=== PATIENT | male | born 1985 | race Caucasian/White ===

== ENCOUNTER → 2022-08-07 | Outpatient (CLI) | payer BC ==
[2022-08-07 14:39] VITALS: BP 143/98; PULSE 90; TEMP 97.7; BMI 42.5
--- NOTE | 2022-08-07 16:37 | P.HPBAR ---
Bariatric H&P - History & Physicial H&P Date: 08/07/22 History & Physicial: Visit/CC: initial clinic visit Patient initial contact: Initial weight: Initial weight in pounds: Height: 5 ft 8.5 in Initial BMI: Last weight: Current weight: 128.82 kg Current weight in pounds: 284.00 Current BMI: 42.5 [place] body weight (based on NIH guidelines): 71.214 kg Excess body weight loss: The patient is a 36 year-old M who presents for Bariatric Assessment. Patient is known to our service from previous evaluation. I know the patient's family from prior surgeries including sleeve gastrectomy. Patient here today to discuss weight loss surgeries. He is interested in sleeve gastrectomy at this time. Patient suffers from hypertension, joint pain, GERD, chronic back pain, fatigue. No history diabetes, no DVT or dysphagia. BMI 42.6. Patient's previous surgeries include a open appendectomy, tonsils, adenoids, left hand. Patient had a flareup of diverticulitis in May. In a similar episode 1-2 years ago. He has had a colonoscopy within the last year. Patient takes occasional Prilosec for his heartburn if he knows he is choosing high acid foods. Review of Systems The patient denies any acute changes in vision or hearing, no dysphagia or od ynophagia, no chest pain or shortness of breath, no dysuria or hematuria, no headache, no runny nose, no rectal bleeding or melena, no unexplained weight loss Past Medical History History of Any Multi-Drug Resistant Organisms: None Reported Smoking Status: Never smoker Surgical - Exam Vital Signs Temp Pulse BP 97.7 F 90 143/98 08/07/22 14:34 08/07/22 14:34 08/07/22 14:34 Physical exam: General: Well-developed, well-nourished HEENT: Normocephalic, sclerae nonicteric Abdomen: Nontender, nondistended Extremities: No edema Neuro: Alert and oriented Bariatric Assessment & Plan (1) Morbid obesity with BMI of 40.0-44.9, adult Narrative/Plan: 36-year-old male with morbid obesity. Patient is interested in sleeve gastrectomy which I believe is a good option for the patient. We discussed the risks and benefits and anticipated weight loss of sleeve gastrectomy and gastric bypass in detail. Patient states he is considering a repeat colonoscopy after discussing his flareup of diverticulitis with a different general surgeon. Patient will require preoperative EGD. Will obtain additional documentation from his primary care team. Status: Acute Bariatric Checklist Checklist: Plan: Checklist: EGD: 1. Hiatal hernia: 2. H. Pylori: HgbA1c: Vitamin D: Smoking: Primary care physician referral: Psychiatry clearance: Cardiology clearance: Sleep study: Diet journal: VTE risk score: VTE risk level: Rehab needs at discharge:
[2022-08-07 20:06] LABS: HCT 45.5 % (39.6-50.0); HGB 15.8 g/dL (13.0-17.0); MCHC 34.7 g/dL (32.0-37.0); MCV 92.3 fL (80.0-97.0); Mean Platelet Volume 10.4 fL (9.5-12.2); NRBC Per 100 WBC 0 /100 WBCS (0.0-0.0); Platelet Count 329 X 10*3/uL (140-440); RBC 4.93 X 10*6/uL (4.40-5.60); RDW 12.3 % (11.5-14.5); WBC 8.78 X 10*3/uL (4.50-10.00)
[2022-08-07 20:24] LABS: African American GFR (CKD) 115.2 (60.0-200.0); Albumin 4.7 g/dL (3.8-4.9); Albumin/Globulin Ratio 1.63 (1.60-3.17); Anion Gap 7.5 mmol/L (10.00-18.00); BUN/Creat Ratio 14.88 Ratio (12.00-20.00); Blood Urea Nitrogen 14.6 mg/dL (9.0-27.0); Carbon Dioxide 26.7 mmol/L (20.0-27.5); Globulin 2.9 g/dL (1.6-3.3); Non-African American GFR(CKD) 99.4 (60.0-200.0); Potassium 4.8 mmol/L (3.5-5.5); Total Bilirubin 0.4 mg/dL (0.30-1.20); Total Protein 7.5 g/dL (6.2-8.2)
[2022-08-09 07:42] LABS: Anabasine Urine <2.0 ng/mL (<2.0)
== END ==
LOC: BARWHC3 13:55
PROVIDERS: ATTEND Surgery
DX: E66.01 Morbid (severe) obesity due to excess calories (principal); Z98.84 Bariatric surgery status; Z68.41 Body mass index [BMI] 40.0-44.9, adult
CPT/HCPCS: 80053; 80323; 82306; 82607; 82746; 83540; 84425; 85027; 93005; 99211

== ENCOUNTER 2022-09-04 11:51 | Day surgery (SDC) | payer BC ==
[2022-08-30 10:09] VITALS: BMI 44.1
[~2022-09-04 11:51] MED LIST: LACTATED RINGERS 1,000 ML IV SCH; LIDOCAINE 1% (10MG/ML) FOR IV START INTRADERMA PRN
[2022-09-04 12:20] VITALS: RESP 16; TEMP 97
[2022-09-04] MEDS ORDERED: PROPOFOL 10 MG/ML 20 ML VIAL IV ONE (12:48)
[2022-09-04] MEDS ORDERED: KETAMINE 10 MG/ML 20 ML VIAL ONE (12:48)
[2022-09-04] MEDS ORDERED: LIDOCAINE 2% INJ 20 MG/ML (2 ML VIAL) ONE (12:48)
--- NOTE | 2022-09-04 12:56 | P.HPADDEND ---
H&P Addendum H&P Addendum Date: 09/04/22 Patient here today for EGD. Please refer to history and physical from 08/07. The patient mild chronic reflux. Being evaluated for sleep gastrectomy.
--- NOTE | 2022-09-04 13:02 | P.PCN ---
Date of Procedure: 09/04/22 Procedure(s) Performed: Preoperative Dx: GERD, presurgical Postoperative Dx: Mild gastritis Procedure: EGD with Bx Anesthesia: Sedation Endoscopist: Dr. Lau Specimens: Antrum Endoscopic Procedure: The patient was on the endoscopy table in the left decubitus position. The Olympus gastroscope was inserted into the oropharynx and passed under direct visualization to the region of the third portion of the duodenum. From that point the scope was slowly withdrawn inspecting all surfaces carefully. There were no neoplastic inflammatory or polypoid lesions throughout the duodenum. The pylorus was widely patent. The stomach was carefully inspected. There was mild gastritis present. A biopsy of the antrum took place to rule out H. pylori. Retroflexion revealed a normal hiatus. The esophagus was then carefully examined. There were no neoplastic inflammatory or polypoid lesions throughout the visualized esophagus. The patient was then taken to the recovery room in stable condition per anesthesia guidelines. Recommendations: Biopsy results. Follow-up bariatric clinic.
[2022-09-04 13:29] VITALS: BP 136/85; PULSE 80
== END 2022-09-04 13:40 | disposition home or self-care (01) ==
LOC: ORWHC2ENDO 11:51
PROVIDERS: ATTEND Surgery
DX: K29.50 Unspecified chronic gastritis without bleeding (principal); K21.9 Gastro-esophageal reflux disease without esophagitis; I10 Essential (primary) hypertension; E66.01 Morbid (severe) obesity due to excess calories; Z68.41 Body mass index [BMI] 40.0-44.9, adult; Z79.82 Long term (current) use of aspirin; Z98.890 Other specified postprocedural states
CPT/HCPCS: 88305; 43239; J2704; J2001

== ENCOUNTER → 2022-10-01 | Outpatient (CLI) | payer BC ==
[2022-10-01 11:20] VITALS: BMI 43.2
== END ==
LOC: BARWHC3 08:45
PROVIDERS: ATTEND Surgery
DX: E66.01 Morbid (severe) obesity due to excess calories (principal); Z68.41 Body mass index [BMI] 40.0-44.9, adult; Z71.3 Dietary counseling and surveillance
CPT/HCPCS: 97804

== ENCOUNTER → 2022-10-09 | Outpatient (CLI) | payer BC ==
[2022-10-09 15:12] VITALS: BP 146/78; PULSE 82; RESP 16; TEMP 99.3; BMI 43.2
--- NOTE | 2022-10-09 15:38 | P.BASOAP ---
Subjective Progress Note Date: 10/09/22 Principal diagnosis: Morbid obesity Patient returns after recent EGD. EGD showed mild gastritis. Doing well since then. He did go back on his lisinopril as his blood pressure was staying high. Other than that no changes to his recent medical history. Objective - Vital Signs Vital signs: Vital Signs Temp 99.3 F 10/09/22 15:10 Pulse 82 10/09/22 15:10 Resp 16 10/09/22 15:10 BP 146/78 10/09/22 15:10 Pulse Ox FiO2 Intake & Output 10/08/22 10/09/22 10/09/22 18:59 06:59 18:59 Weight 131.088 kg - Exam Abdomen: Soft, nontender, nondistended Assessment/Plan (1) Morbid obesity with BMI of 40.0-44.9, adult Narrative/Plan: 37 old male with morbid obesity and comorbidities. Patient remains interested in sleeve gastrectomy. We'll proceed with robotic-assisted laparoscopic sleeve gastrectomy in the next 1-2 months. The risks of bleeding, infection, stenosis, stricture, leak, abscess, fistula formation, peritonitis, poor weight loss, reflux, vomiting, conversion to an open procedure, aborting sleeve gastrectomy, DE, PE, DVT, and were discussed. The patient understands and wishes to proceed. Plan: Date: 10/09/22 Initial Weight: 133.356 kg Initial BMI: 44.0 Current Weight: 131.088 kg Current BMI: 43.2 Type of Surgery: Total Volume in Band: Previous Volume: Volume Removed: Volume Added: Band Size:
== END ==
LOC: BARWHC3 15:01
PROVIDERS: ATTEND Surgery
DX: E66.01 Morbid (severe) obesity due to excess calories (principal); Z68.41 Body mass index [BMI] 40.0-44.9, adult; K29.70 Gastritis, unspecified, without bleeding
CPT/HCPCS: 99211

== ENCOUNTER → 2022-11-13 | Outpatient (CLI) | payer BC ==
[2022-11-13 21:19] LABS: Basophils # (A) 0.09 X 10*3/uL (0.00-0.10); Basophils % (A) 1.2 %; Eosinophils # (A) 0.24 X 10*3/uL (0.04-0.35); Eosinophils % (A) 3.2 %; HCT 46.5 % (39.6-50.0); HGB 15.7 d/dL (12.0-15.0); Lymphocytes # (A) 2.82 X 10*3/uL (0.90-5.00); Lymphocytes % (A) 38.1 %; MCH 32.4 pg (27.0-32.0); MCHC 33.8 d/dL (32.0-37.0); MCV 96.1 FL (80.0-97.0); Mean Platelet Volume 11.2 FL (9.5-12.2); Monocytes % (A) 13.5 %; NRBC Per 100 WBC 0.02 X 10*3/uL (0.00-0.01); Neutrophils # (A) 3.22 X 10*3/uL (1.80-7.70); Neutrophils % (A) 43.5 %; Platelet Count 288 X 10*3/uL (140-440); RBC 4.84 X 10*6/uL (4.40-5.60); RDW 12.3 % (11.5-14.5); WBC 7.41 X 10*3/uL (4.50-10.00)
[2022-11-14 02:43] LABS: ALT 50 U/L (10-49); AST 27 U/L (14-35); Albumin 4.7 d/dL (3.8-4.9); Albumin/Globulin Ratio 1.74 Ratio (1.60-3.17); Alkaline Phosphatase 64 U/L (41-126); BUN/Creat Ratio 16.89 Ratio (12.00-20.00); Blood Urea Nitrogen 15.2 mg/dL (9.0-27.0); Calcium 9.8 mg/dL (8.7-10.3); Carbon Dioxide 24.3 mmol/L (21.6-31.8); Chloride 101 mmol/L (96-109); Globulin 2.7 d/dL (1.6-3.3); Glucose 86 mg/dL (70-110); Potassium 4.7 mmol/L (3.5-5.5); Sodium 138 mmol/L (135-145); Total Bilirubin 0.4 mg/dL (0.3-1.2); Total Protein 7.4 d/dL (6.2-8.2)
== END | disposition home or self-care (01) ==
LOC: LABPAT 15:45
PROVIDERS: ATTEND Surgery
DX: Z01.818 Encounter for other preprocedural examination (principal)
CPT/HCPCS: 80053; 85025

== ENCOUNTER 2022-11-16 11:12 | Day surgery (SDC) | payer BC ==
[2022-11-12 15:06] VITALS: BMI 42.5
--- NOTE | 2022-11-16 07:39 | P.GSHP ---
History of Present Illness H&P Date: 11/16/22 Chief Complaint: Morbid obesity 37-year-old male known to our service. Patient seen in the office in July initially for his weight loss surgery assessment. Patient with history of hypertension, joint pain, GERD, chronic back pain, chronic fatigue. Denies history of DVT or dysphagia. No tobacco use. Patient had recent EGD showed mild gastritis. Past Medical History Past Medical History: GERD/Reflux, Hypertension, Osteoarthritis (OA) Additional Past Medical History / Comment(s): Diverticultis History of Any Multi-Drug Resistant Organisms: None Reported Past Surgical History: Adenoidectomy, Appendectomy, Tonsillectomy Additional Past Surgical History / Comment(s): Colonoscopy, EGD Past Anesthesia/Blood Transfusion Reactions: No Reported Reaction Smoking Status: Former smoker - Past Family History Mother Family Medical History: Cancer Medications and Allergies Home Medications Medication Instructions Recorded Confirmed Type Cholecalciferol [Vitamin D3 (10 10 mcg PO DAILY 08/30/22 10/09/22 History Mcg = 400 Iu)] Multivitamins, Thera [Multivitamin 1 tab PO DAILY 08/30/22 10/09/22 History (formulary)] Aspirin [Adult Low Dose Aspirin EC] 81 mg PO HS 09/04/22 10/09/22 History Calcium Carbonate [Tums] 500 mg PO TID PRN 09/04/22 10/09/22 History Omeprazole [PriLOSEC] 20 mg PO DAILY PRN 09/04/22 10/09/22 History Allergies Allergy/AdvReac Type Severity Reaction Status Date / Time No Known Allergies Allergy Verified 11/12/22 14:59 Surgical - Exam Physical exam: General: Well-developed, well-nourished HEENT: Normocephalic, sclerae nonicteric Abdomen: Nontender, nondistended Extremities: No edema Neuro: Alert and oriented Assessment and Plan (1) Morbid obesity with BMI of 40.0-44.9, adult Narrative/Plan: 37-year-old male with morbid obesity. We'll proceed with laparoscopic da Endy- assisted sleeve gastrectomy, possible open at this time. The risks of bleeding, infection, stenosis, stricture, leak, abscess, fistula formation, peritonitis, poor weight loss, reflux, vomiting, conversion to an open procedure, aborting sleeve gastrectomy, NH, PE, DVT, and were discussed. The patient understands and wishes to proceed. Status: Acute Code(s): E66.01 - MORBID (SEVERE) OBESITY DUE TO EXCESS CALORIES; Z68.41 - BODY MASS INDEX [BMI] 40.0-44.9, ADULT SNOMED Code(s): 498219465
[~2022-11-16 11:12] MED LIST changes: +ACETAMINOPHEN TAB 500 MG TAB PO PRN; +DEXAMETHASONE SOD PHOSPHATE 4 MG/ML 1 ML VIAL IV ONE; +ENOXAPARIN 40 MG/0.4 ML SYRINGE SQ PRN; -LACTATED RINGERS 1,000 ML IV SCH; +MIDAZOLAM 2 MG/2 ML VIAL IV PRN; +ONDANSETRON 4 MG/2 ML VIAL IVP ONE; +ONDANSETRON 4 MG/2 ML VIAL IVP PRN; +ceFAZolin 3 GM in SODIUM CHLORIDE 0.9% 100 ML IVPB PRN
[2022-11-16] MEDS: LACTATED RINGERS 1,000 ML IV SCH (11:54)
[2022-11-16] MEDS ORDERED: KETAMINE 10 MG/ML 20 ML VIAL ONE (14:14)
[2022-11-16] MEDS ORDERED: HYDROmorphone (PF) 1 MG/ML ONE (14:14)
[2022-11-16] MEDS ORDERED: GLYCOPYRROLATE 0.2 MG/ML 2 ML VIAL ONE (14:14)
[2022-11-16] MEDS ORDERED: NEOSTIGMINE 1 MG/ML 10 ML VIAL ONE (14:14)
[2022-11-16] MEDS ORDERED: LIDOCAINE 2% INJ 20 MG/ML (2 ML VIAL) ONE (14:14)
[2022-11-16] MEDS ORDERED: MIDAZOLAM 2 MG/2 ML VIAL ONE (14:14)
[2022-11-16] MEDS ORDERED: SUCCINYLCHOLINE CHLORIDE 200 MG/10 ML VIAL IV ONE (14:14)
[2022-11-16] MEDS ORDERED: fentaNYL (PF) 50 MCG/ML 2 ML AMP ONE (14:14)
[2022-11-16] MEDS ORDERED: ROCURONIUM 10 MG/ML (5 ML VIAL) IV ONE (14:14)
[2022-11-16] MEDS ORDERED: PROPOFOL 10 MG/ML 20 ML VIAL IV ONE (14:14)
[2022-11-16] MEDS ORDERED: BUPIVACAINE (PF) 0.25% 30 ML VIAL SQ ONE ×2 (14:41→14:57)
[2022-11-16] MEDS ORDERED: LACTATED RINGERS 1,000 ML IV ONE (15:15)
[2022-11-16] MEDS ORDERED: NALOXONE 0.4 MG/ML 1 ML VIAL IV PRN (16:22)
[2022-11-16] MEDS ORDERED: HYDROmorphone 0.5 MG/0.5 ML SYRINGE IVP PRN (16:22)
[2022-11-16] MEDS ORDERED: HYOSCYAMINE ORAL DROPS 1.875 MG/15 ML BOTTLE PO PRN (16:22)
[2022-11-16] MEDS ORDERED: diphenhydrAMINE 50 MG/ML 1 ML VIAL IVP PRN (16:22)
--- NOTE | 2022-11-16 16:27 | P.OP ---
Date of Procedure: 11/16/22 Procedure(s) Performed: PREOPERATIVE DIAGNOSIS: Morbid obesity, hypertension, GERD, chronic back pain POSTOPERATIVE DIAGNOSIS: Same PROCEDURE: Da Endy assisted laparoscopic sleeve gastrectomy SURGEON: Judi EBL: Minimal ANESTHESIA: General COMPLICATIONS: None OPERATIVE PROCEDURE: Patient was placed in the operating table in the supine position. The patient was then placed under general anesthesia at that time. The abdomen was prepped and draped in the usual sterile fashion. A 5 mm optical trocar was placed in the left upper quadrant 20 cm inferior to the xiphoid process. Insufflation took place up to 15 mmHg. No adhesions were seen. A 5 mm subxiphoid incision was made and the medium Whit retractor was used to elevate the left lobe of liver anteriorly. This was held in place using the fixed arm retractor. An additional 12 mm trocar was placed in the right paramedian location and 2 additional 8 mm trochars were placed in the left upper quadrant one medial and one lateral to the initially placed optical trocar. All of these trochars were placed along the same plane. The initial 5 was then switched to an 8 mm trocar. The robot was then docked appropriately. The 8 mm camera was placed in the left paramedian trocar site down viewing. A fenestrated bipolar was placed in arm 1, arm 3 had the vessel sealer, arm 4 had the small grasper retractor. The hiatus was inspected and there was no visible hiatal hernia. At that point I moved to the distal aspect of the greater cu rvature the stomach. The short gastric vasculature were divided using the vessel sealer. This dissection took place distally until we were 4 cm from the pylorus. The posterior adhesions were divided as well. The dissection then took place proximally along the stomach until the posterior short gastrics were divided and the fundus of the stomach was fully mobilized. Once the stomach was fully mobilized the blunt tipped 40-Montserratian bougie dilator was advanced into the stomach and advanced all the way to the prepyloric location. The patient's stomach by palpation seemed to be of average thickness. Ethicon SLR buttress material was used at each staple load. The stomach was quite long. A total of one black load, 2 green loads, and 5 blue loads were utilized. The last firing only covered about 1 cm of the stomach. The stomach was then placed in the right upper quadrant after it was fully excised. The oral gastric tube was reinserted. The stomach was insufflated with approximately 100 mL of methylene blue. No evidence of leak or obstruction was seen. Pressure was then dropped to 8 mm for 2-3 minutes. The staple line was inspected and no bleeding was seen. Tisseel fibrin glue was then used along the length of the staple line. The robot was then undocked. The da Endy laparoscope was used and the stomach was removed from the 12 mm trocar site without difficulty. The fascia at the 12mm site was closed using [id number] 0 Vicryl sutures with the laparoscopic suture passer and José Miguel Marika technique. The insufflation was evacuated. The skin at all 5 incisions were closed using 4-0 Monocryl sutures. Skin glue was then applied. DISPOSITION: Stable to recovery room
[2022-11-16] MEDS: HYDROmorphone 0.5 MG/0.5 ML SYRINGE IVP PRN ×2 (16:48→17:04)
[2022-11-16] MEDS: fentaNYL (PF) 50 MCG/ML 2 ML AMP IVP ONE ×2 (17:19→17:28)
[2022-11-16] MEDS: ACETAMINOPHEN IV (For NPO) 1,000 MG in EMPTY BAG 1 BAG IVPB SCH (18:28)
[2022-11-16] MEDS: ONDANSETRON 4 MG/2 ML VIAL IVP PRN (18:49)
[2022-11-16] MEDS: HYDROmorphone 1 MG/ML 1 ML SYRINGE IVP PRN ×2 (19:01→21:18)
[2022-11-16] MEDS: ALBUTEROL NEBULIZED 2.5 MG/3 ML INHALATION SCH (20:37)
[2022-11-16] MEDS: 0.9% NACL WITH KCL 20 MEQ/L 1,000 ML IV SCH (21:16)
[2022-11-17] MEDS: ACETAMINOPHEN IV (For NPO) 1,000 MG in EMPTY BAG 1 BAG IVPB SCH ×5 (00:15→23:28)
[2022-11-17] MEDS: HYDROmorphone 1 MG/ML 1 ML SYRINGE IVP PRN ×4 (00:16→22:12)
[2022-11-17] MEDS: 0.9% NACL WITH KCL 20 MEQ/L 1,000 ML IV SCH ×4 (01:26→08:36)
[2022-11-17] MEDS: LACTATED RINGERS 1,000 ML IV SCH (05:46)
[2022-11-17] MEDS: ENOXAPARIN 40 MG/0.4 ML SYRINGE SQ SCH ×2 (06:07→16:32)
--- NOTE | 2022-11-17 08:22 | XR ---
EXAMINATION TYPE: XR abdomen 2V DATE OF EXAM: 11/17/2022 COMPARISON: NONE HISTORY: Post bariatric surgery gastric sleeve. TECHNIQUE: Role Player radiograph of the abdomen was obtained followed by 3 additional radiographs of the a oanh after the oral ingestion of 2 ounces of Isovue-370. FINDINGS: Role Player radiograph demonstrates nonobstructive bowel gas pattern. No abnormal calcifications. The osseo us structures appear intact. Postsurgical changes from gastric sleeve. Postsurgical changes from gastric sleeve. No evidence for obstruction or leak. Contrast easily passes within the small bowel by 5 minutes. No focal stricture or mucosal irregularity identified. IMPRESSION: Postsurgical changes from gastric sleeve. No evidence for obstruction or leak.
[2022-11-17] MEDS: ONDANSETRON 4 MG/2 ML VIAL IVP PRN ×2 (08:34→13:29)
[2022-11-17] MEDS: PANTOPRAZOLE 40 MG/10 ML VIAL IV SCH (08:34)
[2022-11-17] MEDS: ALBUTEROL NEBULIZED 2.5 MG/3 ML INHALATION SCH ×4 (08:36→19:12)
[2022-11-17 09:24] LABS: Blood Urea Nitrogen 7.9 mg/dL (9.0-27.0); Calcium 9.4 mg/dL (8.7-10.3); Carbon Dioxide 23.7 mmol/L (21.6-31.8); Chloride 100 mmol/L (96-109); Magnesium 1.8 mg/dL (1.5-2.4); Phosphorus 3.8 mg/dL (2.4-5.1); Potassium 5.1 mmol/L (3.5-5.5); Sodium 136 mmol/L (135-145)
[2022-11-17 09:25] LABS: HCT 43.7 % (39.6-50.0); HGB 15.4 d/dL (12.0-15.0); MCH 32.3 pg (27.0-32.0); MCHC 35.2 d/dL (32.0-37.0); MCV 91.6 FL (80.0-97.0); Mean Platelet Volume 10.9 FL (9.5-12.2); NRBC Per 100 WBC 0 X 10*3/uL (0.00-0.01); Platelet Count 350 X 10*3/uL (140-440); RBC 4.77 X 10*6/uL (4.40-5.60); RDW 12.1 % (11.5-14.5); WBC 16.24 X 10*3/uL (4.50-10.00)
[2022-11-17] MEDS ORDERED: CALCIUM CARBONATE 500 MG CHEWABLE PO PRN (09:49)
[2022-11-17] MEDS ORDERED: NON FORMULARY DRUG (Omeprazole 20 MG Capsule.Dr) PO PRN (09:49)
[2022-11-17 09:59] LABS: Basophils # (A) 0.03 X 10*3/uL (0.00-0.10); Basophils % (A) 0.2 %; Eosinophils # (A) 0.01 X 10*3/uL (0.04-0.35); Eosinophils % (A) 0.1 %; Lymphocytes # (A) 1.81 X 10*3/uL (0.90-5.00); Lymphocytes % (A) 11.1 %; Monocytes % (A) 11.7 %; Neutrophils # (A) 12.41 X 10*3/uL (1.80-7.70); Neutrophils % (A) 76.4 %; RBC Morphology Normal (Normal)
--- NOTE | 2022-11-17 10:21 | P.HPIM ---
History of Present Illness H&P Date: 11/17/22 Abraham Pickett, is a 37-year-old male who was admitted to [facility] by Dr. Lau, and underwent sleeve gastrectomy on 11/16/2022 for management of morbid obesity, he was admitted to medical floor post surgery, consultation was requested for medical management while hospitalized. Past medical history is significant for history of hypertension, patient was maintained on lisinopril, however he states that over the last 2 weeks his blood pressure was down due to his aggressive diet before surgery, and he has not taken lisinopril for the last 2 weeks. Past medical history is also significant for history of gastroesophageal reflux disease, history of diverticulitis with admission in the past, history of morbid obesity, patient denies any prior history of coronary artery disease, hypertension, diabetes mellitus, hypothyroidism, asthma or COPD. On review of systems patient is alert and oriented 3 in no apparent distress there is no fever or chills no headache or dizziness no chest pain no shortness of breath no cough no nausea or vomiting no abdominal pain no diarrhea no blood in the stools no burning with urination no frequency or urgency and no hematuria. Past Medical History Past Medical History: GERD/Reflux, Hypertension, Osteoarthritis (OA) Additional Past Medical History / Comment(s): Diverticultis History of Any Multi-Drug Resistant Organisms: None Reported Past Surgical History: Adenoidectomy, Appendectomy, Tonsillectomy Additional Past Surgical History / Comment(s): Colonoscopy, EGD Past Anesthesia/Blood Transfusion Reactions: No Reported Reaction Past Psychological History: No Psychological Hx Reported Smoking Status: Former smoker Past Alcohol Use History: None Reported Additional Past Alcohol Use History / Comment(s): quit smoking 2011 Past Drug Use History: None Reported - Past Family History Mother Family Medical History: Cancer Medications and Allergies Home Medications Medication Instructions Recorded Confirmed Type Cholecalciferol [Vitamin D3 (10 10 mcg PO DAILY 08/30/22 11/16/22 History Mcg = 400 Iu)] Multivitamins, Thera [Multivitamin 1 tab PO DAILY 08/30/22 11/16/22 History (formulary)] Aspirin [Adult Low Dose Aspirin EC] 81 mg PO HS 09/04/22 11/16/22 History Calcium Carbonate [Tums] 500 mg PO TID PRN 09/04/22 11/16/22 History Omeprazole [PriLOSEC] 20 mg PO DAILY PRN 09/04/22 11/16/22 History Allergies Allergy/AdvReac Type Severity Reaction Status Date / Time No Known Allergies Allergy Verified 11/16/22 11:31 Physical Exam Vitals: Vital Signs Temp Pulse Pulse Resp BP BP Pulse Ox 11/17/22 08:47 98.6 F 67 16 187/79 96 11/17/22 01:21 98.7 F 63 16 137/76 95 11/16/22 19:22 87 159/79 11/16/22 19:07 89 145/82 90 L 11/16/22 18:52 75 161/84 95 11/16/22 18:37 75 160/85 96 11/16/22 18:23 74 165/82 11/16/22 18:07 97.5 F L 79 18 152/79 93 L 11/16/22 17:33 77 16 177/90 100 11/16/22 17:18 65 16 177/81 100 11/16/22 17:03 78 16 184/84 100 11/16/22 16:48 86 16 168/72 100 11/16/22 16:33 97.2 F L 87 12 162/70 100 11/16/22 16:22 90 L 11/16/22 11:28 97.7 F 74 14 128/64 98 Intake and Output 11/16/22 11/17/22 11/17/22 22:59 06:59 14:59 Intake Total 1200 Output Total 15 Balance 1185 Intake: IV 1200 Output: Estimated Blood Loss 15 Other: # Voids 1 2 Weight 124.6 kg In general patient is alert and oriented x 3 in no distress HEENT head normocephalic and atraumatic Neck is supple no JVD no goiter no lymphadenopathy no carotid bruit Chest examination is clear to auscultation no crackles no wheezing Cardiac exam reveals regular heart sounds S1 and S2 no gallops no murmurs Abdomen is soft nontender no organomegaly with normal bowel sounds Extremity exam reveals no edema no cyanosis or clubbing Neurological examination reveals no gross focal deficits Results CBC & Chem 7: 11/17/22 05:59 11/17/22 05:59 Labs: Abnormal Lab Results - Last 24 Hours (Table) 11/17/22 11/17/22 Range/Units 05:59 05:59 WBC 16.24 H (4.50-10.00) X 10*3/uL Hgb 15.4 H (12.0-15.0) d/dL MCH 32.3 H (27.0-32.0) pg Anion Gap 12.30 H (4.00-12.00) mmol/L BUN 7.9 L (9.0-27.0) mg/dL Thrombosis Risk Factor Assmnt - Choose All That Apply Any of the Below Risk Factors Present?: Yes Each Factor Represents 1 point: Obesity (BMI >25) Each Risk Factor Represents 2 Points: Laparoscopic surgery, Major surgery Thrombosis Risk Factor Assessment Total Risk Factor Score: 5 Thrombosis Risk Factor Assessment Level: High Risk Assessment and Plan Plan: Status post sleeve gastrectomy on 11/16/2022 Morbid obesity Underlying history of hypertension, will monitor closely and restart blood pressure medication if blood pressure remains elevated Underlying history of gastroesophageal reflux disease Will resume omeprazole Previous history of diverticulosis, with previous history of diverticulitis At this time patient is admitted to medical floor For DVT prophylaxis SCD stockings For GI prophylaxis continue omeprazole Will monitor blood pressure closely and resume lisinopril if needed Will continue to follow during this hospitalization
[2022-11-17] MEDS: CHOLECALCIFEROL 10 MCG (400 IU) TABLET PO SCH (11:26)
[2022-11-17] MEDS: MULTIVITAMINS, THERA 1 EACH TAB PO SCH (11:26)
--- NOTE | 2022-11-17 12:23 | P.PN ---
Subjective Progress Note Date: 11/17/22 Principal diagnosis: Morbid obesity Patient underwent elective robotic sleeve gastrectomy yesterday. Doing well today. Complaining of mild pain at the extraction site. White blood cell count 16.2. Today's upper GI shows no evidence of leak or obstruction. Objective - Vital Signs Vital signs: Vital Signs Temp 98.6 F 11/17/22 08:47 Pulse 67 11/17/22 08:47 Resp 16 11/17/22 08:47 BP 187/79 11/17/22 08:47 Pulse Ox 96 11/17/22 08:47 FiO2 Intake & Output 11/16/22 11/17/22 11/17/22 18:59 06:59 18:59 Intake Total 2100 900 Output Total 15 Balance 2084 900 Weight 124.6 kg Intake: IV 2100 Intake, IV Titration 900 Amount 0.9% NaCl with KCl 20 Meq 800 /l 1,000 ml @ 100 mls/hr IV .Q10H [facility] Rx#: [id number] ACETAMINOPHEN IV (For NPO 100 ) 1,000 mg In Empty Bag 1 bag @ 400 mls/hr IVPB Q6HR [facility] Rx#:[id number] Output: Estimated Blood Loss 15 Other: # Voids 1 2 - Exam Abdomen: Soft, nondistended, incisions clean and dry, minimal tenderness - Labs CBC & Chem 7: 11/17/22 05:59 11/17/22 05:59 Labs: Abnormal Lab Results - Last 24 Hours (Table) 11/17/22 11/17/22 Range/Units 05:59 05:59 WBC 16.24 H (4.50-10.00) X 10*3/uL Hgb 15.4 H (12.0-15.0) d/dL MCH 32.3 H (27.0-32.0) pg Neutrophils # 12.41 H (1.80-7.70) X 10*3/uL Monocytes # 1.90 H (0.20-1.00) X 10*3/uL Eosinophils # 0.01 L (0.04-0.35) X 10*3/uL Anion Gap 12.30 H (4.00-12.00) mmol/L BUN 7.9 L (9.0-27.0) mg/dL Assessment and Plan (1) Morbid obesity with BMI of 40.0-44.9, adult Narrative/Plan: 37 showed male doing well after sleeve gastrectomy yesterday. Begin bariatric clear liquids. Repeat CBC tomorrow. Ambulate. Current Visit: No Status: Acute Code(s): E66.01 - MORBID (SEVERE) OBESITY DUE TO EXCESS CALORIES; Z68.41 - BODY MASS INDEX [BMI] 40.0-44.9, ADULT SNOMED Code(s): 321497751
[2022-11-17] MEDS: SIMETHICONE 80 MG CHEWABLE PO PRN (20:45)
[2022-11-17] MEDS ORDERED: ASPIRIN 81 MG PO SCH (21:00)
[2022-11-18] MEDS: ACETAMINOPHEN IV (For NPO) 1,000 MG in EMPTY BAG 1 BAG IVPB SCH ×2 (05:41→12:39)
[2022-11-18] MEDS: ENOXAPARIN 40 MG/0.4 ML SYRINGE SQ SCH (05:41)
[2022-11-18] MEDS: SIMETHICONE 80 MG CHEWABLE PO PRN (05:53)
[2022-11-18] MEDS ORDERED: bisacodyL 5 MG TABLET.DR PO PRN (08:00)
[2022-11-18] MEDS: PANTOPRAZOLE 40 MG/10 ML VIAL IV SCH (08:07)
[2022-11-18] MEDS: CHOLECALCIFEROL 10 MCG (400 IU) TABLET PO SCH (08:09)
[2022-11-18] MEDS: MULTIVITAMINS, THERA 1 EACH TAB PO SCH (08:09)
[2022-11-18] MEDS: ALBUTEROL NEBULIZED 2.5 MG/3 ML INHALATION SCH ×3 (08:14→15:29)
[2022-11-18] MEDS ORDERED: lisinopriL 10 MG TAB PO SCH (09:30)
[2022-11-18 10:09] LABS: ALT 34 U/L (4-49); AST 23 U/L (17-59); African American GFR (CKD) >90 (>60 ml/min/1.73 sqM); Albumin 4.3 g/dL (3.5-5.0); Albumin/Globulin Ratio 1.3; Alkaline Phosphatase 64 U/L (38-126); Anion Gap 12 mmol/L; Blood Urea Nitrogen 8 mg/dL (9-20); Calcium 9.3 mg/dL (8.4-10.2); Carbon Dioxide 26 mmol/L (22-30); Chloride 98 mmol/L (98-107); Globulin 3.2 g/dL; Glucose 88 mg/dL (74-99); Non-African American GFR(CKD) >90 (>60 ml/min/1.73 sqM); Potassium 4.9 mmol/L (3.5-5.1); Sodium 136 mmol/L (137-145); Total Bilirubin 0.9 mg/dL (0.2-1.3); Total Protein 7.5 g/dL (6.3-8.2)
[2022-11-18 10:15] LABS: Basophils # (A) 0.1 k/uL (0-0.2); Basophils % (A) 0 %; Eosinophils # (A) 0.1 k/uL (0-0.7); Eosinophils % (A) 1 %; HCT 43.9 % (39.0-53.0); HGB 15.4 gm/dL (13.0-17.5); Lymphocytes # (A) 2.4 k/uL (1.0-4.8); Lymphocytes % (A) 19 %; MCH 32.9 pg (25.0-35.0); MCHC 35.1 g/dL (31.0-37.0); MCV 93.8 fL (80.0-100.0); Mean Platelet Volume 8.7; Monocytes # (A) 1.3 k/uL (0-1.0); Monocytes % (A) 10 %; Neutrophils # (A) 8.9 k/uL (1.3-7.7); Neutrophils % (A) 69 %; Platelet Count 278 k/uL (150-450); RBC 4.68 m/uL (4.30-5.90); RDW 12.3 % (11.5-15.5); WBC 12.9 k/uL (3.8-10.6)
--- NOTE | 2022-11-18 10:33 | P.PN ---
Subjective Progress Note Date: 11/18/22 Abraham Pickett, is a 37-year-old male who was admitted to [facility] by Dr. Lau, and underwent sleeve gastrectomy on 11/16/2022 for management of morbid obesity, he was admitted to medical floor post surgery, consultation was requested for medical management while hospitalized. Past medical history is significant for history of hypertension, patient was maintained on lisinopril, however he states that over the last 2 weeks his blood pressure was down due to his aggressive diet before surgery, and he has not taken lisinopril for the last 2 weeks. Past medical history is also significant for history of gastroesophageal reflux disease, history of diverticulitis with admission in the past, history of morbid obesity, patient denies any prior history of coronary artery disease, hypertension, diabetes mellitus, hypothyroidism, asthma or COPD. On review of systems patient is alert and oriented 3 in no apparent distress there is no fever or chills no headache or dizziness no chest pain no shortness of breath no cough no nausea or vomiting no abdominal pain no diarrhea no blood in the stools no burning with urination no frequency or urgency and no hematuria. On 02/18/2093 patient is alert and oriented 3. Patient denies chest pain or shortness breath. Patient denies nausea vomiting or diarrhea. Patient denies any urinary burning or frequency. Patient's blood pressure remains elevated at 158/75. Lisinopril 10 mg added for blood pressure control. Patient denies any acute symptoms. White blood cell trending down to 12.9. Objective - Vital Signs Vital signs: Vital Signs Temp 99.2 F 11/18/22 07:12 Pulse 73 11/18/22 07:12 Resp 16 11/18/22 07:12 BP 158/75 11/18/22 07:12 Pulse Ox 95 11/18/22 07:12 FiO2 Intake & Output 11/17/22 11/18/22 11/18/22 18:59 06:59 18:59 Intake Total 900 Balance 900 Intake: Intake, IV Titration 900 Amount 0.9% NaCl with KCl 20 Meq 800 /l 1,000 ml @ 100 mls/hr IV .Q10H [facility] Rx#: [id number] ACETAMINOPHEN IV (For NPO 100 ) 1,000 mg In Empty Bag 1 bag @ 400 mls/hr IVPB Q6HR [facility] Rx#:[id number] Other: # Voids 3 1 - Exam In general patient is alert and oriented x 3 in no distress HEENT head normocephalic and atraumatic Neck is supple no JVD no goiter no lymphadenopathy no carotid bruit Chest examination is clear to auscultation no crackles no wheezing Cardiac exam reveals regular heart sounds S1 and S2 no gallops no murmurs Abdomen is soft nontender no organomegaly with normal bowel sounds Extremity exam reveals no edema no cyanosis or clubbing Neurological examination reveals no gross focal deficits - Labs CBC & Chem 7: 11/18/22 08:51 11/18/22 08:51 Labs: Abnormal Lab Results - Last 24 Hours (Table) 11/18/22 11/18/22 Range/Units 08:51 08:51 WBC 12.9 H (3.8-10.6) k/uL Neutrophils # 8.9 H (1.3-7.7) k/uL Monocytes # 1.3 H (0-1.0) k/uL Sodium 136 L (137-145) mmol/L BUN 8 L (9-20) mg/dL Assessment and Plan Assessment: Status post sleeve gastrectomy on 11/16/2022 Morbid obesity Underlying history of hypertension, will monitor closely and restart blood pressure medication if blood pressure remains elevated. Lisinopril added Underlying history of gastroesophageal reflux disease Will resume omeprazole Previous history of diverticulosis, with previous history of diverticulitis At this time patient is admitted to medical floor For DVT prophylaxis SCD stockings For GI prophylaxis continue omeprazole Will monitor blood pressure closely and resume lisinopril if needed Will continue to follow during this hospitalization
[2022-11-18] MEDS: 0.9% NACL WITH KCL 20 MEQ/L 1,000 ML IV SCH (12:40)
--- NOTE | 2022-11-18 13:38 | P.DS ---
Providers Expected date of discharge: 11/18/22 Attending physician: Benitez Lau Consults: 11/16/22 16:22 Consult Physician Routine Consulting Provider: Pj Louis Consult Reason/Comments: Medical management Do you want consulting provider notified?: Yes Primary care physician: Rachel De La Rosa - Discharge Diagnosis(es) (1) Morbid obesity with BMI of 40.0-44.9, adult Patient admitted 2 days ago for elective robotic sleeve gastrectomy. Postoperatively has done well. He was having some nausea that is improved. Minimal pain. Only pain is at the extraction site. Upper GI shows no leak or obstruction. Labs show mild leukocytosis which is improving. Will plan discharge today. Follow up bariatric center on Saturday. Current Visit: No Status: Acute Plan - Discharge Summary Discharge Rx Participant: Yes New Discharge Prescriptions: No Action Multivitamins, Thera [Multivitamin (formulary)] 1 tab PO DAILY Aspirin [Adult Low Dose Aspirin EC] 81 mg PO HS Omeprazole [PriLOSEC] 20 mg PO DAILY PRN PRN Reason: Heartburn Calcium Carbonate [Tums] 500 mg PO TID PRN PRN Reason: Heartburn Cholecalciferol [Vitamin D3 (10 Mcg = 400 Iu)] 10 mcg PO DAILY Discharge Medication List Cholecalciferol [Vitamin D3 (10 Mcg = 400 Iu)] 10 mcg PO DAILY 08/30/22 [History] Multivitamins, Thera [Multivitamin (formulary)] 1 tab PO DAILY 08/30/22 [History] Aspirin [Adult Low Dose Aspirin EC] 81 mg PO HS 09/04/22 [History] Calcium Carbonate [Tums] 500 mg PO TID PRN 09/04/22 [History] Omeprazole [PriLOSEC] 20 mg PO DAILY PRN 09/04/22 [History]
[2022-11-18 13:58] VITALS: BP 161/82; PULSE 74; RESP 18; TEMP 99.8
== END 2022-11-18 15:46 | disposition home or self-care (01) ==
LOC: OR 11:12 → 4SSUR 16:23 → OR 11-18 15:46
PROVIDERS: ATTEND Surgery
DX: E66.01 Morbid (severe) obesity due to excess calories (principal); Z68.41 Body mass index [BMI] 40.0-44.9, adult; I10 Essential (primary) hypertension; K21.9 Gastro-esophageal reflux disease without esophagitis; G89.29 Other chronic pain; M54.9 Dorsalgia, unspecified; M19.90 Unspecified osteoarthritis, unspecified site; Z86.19 Personal history of other infectious and parasitic diseases; Z98.890 Other specified postprocedural states; Z87.891 Personal history of nicotine dependence; Z80.9 Family history of malignant neoplasm, unspecified; Z79.82 Long term (current) use of aspirin; Z79.899 Other long term (current) drug therapy
CPT/HCPCS: 43775; 97163; 86900; 86901; 80051; 80053; 82310; 82565; 83735; 84100; 84520; 85025 ×2; 86850; 88307; 74019; C1762; J2250; J0330; J1200; J1100; J2710; J0690; J2405 ×2; J1650 ×3; J3010; J1170 ×3; J0131 ×3; J2704; C9113 ×2; Q9967; J2001

== ENCOUNTER → 2022-11-20 | Outpatient (CLI) | payer BC ==
[2022-11-20 15:58] VITALS: BMI 39.6
[2022-11-20 16:27] VITALS: BP 113/80; PULSE 69; TEMP 98
== END ==
LOC: BARWHC3 15:02
PROVIDERS: ATTEND Surgery
DX: E66.01 Morbid (severe) obesity due to excess calories (principal); Z48.815 Encounter for surgical aftercare following surgery on the digestive system; Z98.84 Bariatric surgery status
CPT/HCPCS: 97802; 99211

== ENCOUNTER → 2022-11-27 | Outpatient (CLI) | payer BC ==
[2022-11-27 15:43] VITALS: BP 136/85; PULSE 74; RESP 16; TEMP 98.8; BMI 38.7
--- NOTE | 2022-11-27 17:55 | P.BASOAP ---
Subjective Progress Note Date: 11/27/22 Principal diagnosis: she is doing well. She has lost 5 pounds. Adequate protein and liquid intake. No nausea or vomiting. No GERD. No pain. Patient returns after recent sleeve gastrectomy. Doing well at this time. No seen again pain. Tolerating liquids and protein. No heartburn. No vomiting. Objective - Vital Signs Vital signs: Vital Signs Temp 98.8 F 11/27/22 15:41 Pulse 74 11/27/22 15:41 Resp 16 11/27/22 15:41 BP 136/85 11/27/22 15:41 Pulse Ox FiO2 Intake & Output 11/26/22 11/27/22 11/27/22 18:59 06:59 18:59 Weight 117.48 kg - Exam Abdomen: Soft, nondistended, incision clean and dry Assessment/Plan (1) Morbid obesity with BMI of 40.0-44.9, adult Narrative/Plan: Patient doing well after sleeve gastrectomy. Continue liquid diet. Continue light lifting. Recheck 1-2 weeks. Check one month labs at that time. Plan: Date: 11/27/22 Initial Weight: 133.356 kg Initial BMI: 44.0 Current Weight: 117.48 kg Current BMI: 38.7 Type of Surgery: Vertical Sleeve Gastrectomy Total Volume in Band: Previous Volume: Volume Removed: Volume Added: Band Size:
== END ==
LOC: BARWHC3 15:05
PROVIDERS: ATTEND Surgery
DX: E66.01 Morbid (severe) obesity due to excess calories (principal); Z48.815 Encounter for surgical aftercare following surgery on the digestive system; Z71.3 Dietary counseling and surveillance; Z98.84 Bariatric surgery status; Z68.41 Body mass index [BMI] 40.0-44.9, adult
CPT/HCPCS: 97803; 99211

== ENCOUNTER → 2022-12-18 | Outpatient (CLI) | payer BC ==
[2022-12-18 15:24] VITALS: BP 123/68; PULSE 74; RESP 16; TEMP 98.3; BMI 36.6
--- NOTE | 2022-12-18 15:38 | P.BASOAP ---
Subjective Progress Note Date: 12/18/22 Principal diagnosis: Morbid obesity Patient returns for recheck. Last seen on 11/27. On and again on Saturday the patient states he did not get enough fluids because of social outings. He started feeling some vague abdominal pain in the suprapubic location on Saturday and then worsening on Saturday. Says it feels like his diverticulitis. He has had multiple flareups in the past. He started Cipro that he had at home. He has a 10 day course. Fevers. Heart rate 74, temp 98.3. He has lost 15 pounds since last visit. Otherwise feels well. He has 64 ounces of liquids yesterday. He started taking MiraLAX and has better bowel function. He is due for one month labs. Objective - Vital Signs Vital signs: Vital Signs Temp 98.3 F 12/18/22 15:20 Pulse 74 12/18/22 15:20 Resp 16 12/18/22 15:20 BP 123/68 12/18/22 15:20 Pulse Ox FiO2 Intake & Output 12/17/22 12/18/22 12/18/22 18:59 06:59 18:59 Weight 110.677 kg - Exam Abdomen: Soft, mild left lower quadrant tenderness, incisions clean and dry, nondistended Assessment/Plan (1) Morbid obesity with BMI of 40.0-44.9, adult Narrative/Plan: Patient doing better today. Likely is dealing with a flareup of his diverticulitis. Finish course of Cipro. Check one month labs. Continue MiraLAX and encouraging oral intake. Recheck 4 weeks. Patient will contact me with any further difficulties this week. Plan: Date: 12/18/22 Initial Weight: 133.356 kg Initial BMI: 44.0 Current Weight: 110.677 kg Current BMI: 36.6 Type of Surgery: Vertical Sleeve Gastrectomy Total Volume in Band: Previous Volume: Volume Removed: Volume Added: Band Size:
== END ==
LOC: BARWHC3 14:53
PROVIDERS: ATTEND Surgery
DX: E66.01 Morbid (severe) obesity due to excess calories (principal); Z68.36 Body mass index [BMI] 36.0-36.9, adult
CPT/HCPCS: 97803; 99211

== ENCOUNTER → 2022-12-22 | Outpatient (CLI) | payer BC ==
[2022-12-22 23:13] LABS: HCT 40.6 % (39.6-50.0); HGB 14.2 d/dL (13.0-17.0); MCH 32.1 pg (27.0-32.0); MCV 91.6 FL (80.0-97.0); Mean Platelet Volume 11.2 FL (9.5-12.2); NRBC Per 100 WBC 0 X 10*3/uL (0.00-0.01); Platelet Count 311 X 10*3/uL (140-440); RBC 4.43 X 10*6/uL (4.40-5.60); RDW 12.5 % (11.5-14.5)
[2022-12-23 08:40] LABS: ALT 20 U/L (10-49); AST 19 U/L (14-35); Albumin 4.3 d/dL (3.8-4.9); Albumin/Globulin Ratio 1.59 Ratio (1.60-3.17); Alkaline Phosphatase 76 U/L (41-126); Blood Urea Nitrogen 9.1 mg/dL (9.0-27.0); Calcium 10.2 mg/dL (8.7-10.3); Carbon Dioxide 26.9 mmol/L (21.6-31.8); Chloride 96 mmol/L (96-109); Globulin 2.7 d/dL (1.6-3.3); Glucose 87 mg/dL (70-110); Iron 50 UG/DL (65-175); Sodium 137 mmol/L (135-145); Total Bilirubin 0.6 mg/dL (0.3-1.2)
== END | disposition home or self-care (01) ==
LOC: LABWHC1 11:00
PROVIDERS: ATTEND Surgery
DX: E66.01 Morbid (severe) obesity due to excess calories (principal); K90.89 Other intestinal malabsorption; E55.9 Vitamin D deficiency, unspecified
CPT/HCPCS: 36415; 80053; 82306; 82607; 82746; 83540; 84425; 85027

== ENCOUNTER → 2023-03-05 | Outpatient (CLI) | payer BC ==
--- NOTE | 2023-03-05 12:33 | P.BASOAP ---
Subjective Progress Note Date: 03/05/23 Principal diagnosis: Morbid obesity Patient returns for recheck. Doing well since his last visit. Loss 12 more pounds since December. No GERD symptoms. No nausea or vomiting. Still taking antiacids daily. Bowels are moving nicely. Using MiraLAX as needed now. Objective - Vital Signs Vital signs: Vital Signs Temp 98.6 F 03/05/23 12:14 Pulse 60 03/05/23 12:14 Resp BP 139/81 03/05/23 12:14 Pulse Ox FiO2 Intake & Output 03/04/23 03/05/23 03/05/23 18:59 06:59 18:59 Weight 100.698 kg - Exam Abdomen: Soft, nontender, nondistended Assessment/Plan (1) Morbid obesity with BMI of 40.0-44.9, adult Narrative/Plan: Patient doing well at this time. Again antiacids Saturday. May resume baby aspirin with meals for strong history of cardiac disease and his family. Check three-month labs. Follow-up April. Plan: Date: 03/05/23 Initial Weight: 133.356 kg Initial BMI: 44.0 Current Weight: 100.698 kg Current BMI: 33.3 Type of Surgery: Total Volume in Band: Previous Volume: Volume Removed: Volume Added: Band Size:
[2023-03-05 12:45] VITALS: BP 139/81; PULSE 60; TEMP 98.6; BMI 33.3
[2023-03-05 17:01] LABS: HCT 44.5 % (39.6-50.0); HGB 15.1 d/dL (13.0-17.0); MCH 32.4 pg (27.0-32.0); MCHC 33.9 d/dL (32.0-37.0); MCV 95.5 FL (80.0-97.0); Mean Platelet Volume 11.5 FL (9.5-12.2); NRBC Per 100 WBC 0 X 10*3/uL (0.00-0.01); Platelet Count 326 X 10*3/uL (140-440); RBC 4.66 X 10*6/uL (4.40-5.60); RDW 12.7 % (11.5-14.5); WBC 14.38 X 10*3/uL (4.50-10.00)
[2023-03-06 01:12] LABS: ALT 22 U/L (10-49); AST 36 U/L (14-35); Albumin 4.8 d/dL (3.8-4.9); Alkaline Phosphatase 103 U/L (41-126); BUN/Creat Ratio 14.38 Ratio (12.00-20.00); Blood Urea Nitrogen 11.5 mg/dL (9.0-27.0); Calcium 10.4 mg/dL (8.7-10.3); Carbon Dioxide 24.2 mmol/L (21.6-31.8); Chloride 100 mmol/L (96-109); Globulin 3.2 d/dL (1.6-3.3); Glucose 99 mg/dL (70-110); Iron 136 UG/DL (65-175); Potassium 5.7 mmol/L (3.5-5.5); Sodium 138 mmol/L (135-145); Total Bilirubin 0.5 mg/dL (0.3-1.2)
== END ==
LOC: BARWHC3 11:54
PROVIDERS: ATTEND Surgery
DX: E66.01 Morbid (severe) obesity due to excess calories (principal); K90.89 Other intestinal malabsorption; E55.9 Vitamin D deficiency, unspecified; Z68.33 Body mass index [BMI] 33.0-33.9, adult
CPT/HCPCS: 80053; 82306; 82607; 82746; 83540; 84425; 85027; 99211

== ENCOUNTER → 2023-05-14 | Outpatient (CLI) | payer BC ==
[2023-05-14 13:25] VITALS: BP 130/78; PULSE 65; RESP 16; TEMP 98.8; BMI 30.2
--- NOTE | 2023-05-14 13:32 | P.BASOAP ---
Subjective Progress Note Date: 05/14/23 Principal diagnosis: morbid obesity Patient doing well at this time. Has lost 20 pounds since his last visit. No longer taking any antacids. Denies nausea or vomiting. No pain. Labs from February show elevated B12, elevated white blood cell count, elevated potassium and calcium. Patient states he had flulike symptoms at that time. Objective - Vital Signs Vital signs: Vital Signs Temp 98.8 F 05/14/23 13:08 Pulse 65 05/14/23 13:08 Resp 16 05/14/23 13:08 BP 130/78 05/14/23 13:08 Pulse Ox FiO2 Intake & Output 05/13/23 05/14/23 05/14/23 18:59 06:59 18:59 Weight 91.626 kg - Exam Abdomen: Soft, nontender, nondistended Assessment/Plan (1) Morbid obesity with BMI of 40.0-44.9, adult Narrative/Plan: Patient doing well at this time. Continue dietary and exercise regimen. Check 6 month labs at this time. Follow-up 2 months. Plan: Date: 05/14/23 Initial Weight: 133.356 kg Initial BMI: 44.0 Current Weight: 91.626 kg Current BMI: 30.2 Type of Surgery: Total Volume in Band: Previous Volume: Volume Removed: Volume Added: Band Size:
[2023-05-14 18:39] LABS: HCT 41.2 % (39.6-50.0); HGB 14.5 g/dL (13.0-17.0); MCH 33.1 pg (27.0-32.0); MCHC 35.2 g/dL (32.0-37.0); MCV 94.1 FL (80.0-97.0); Mean Platelet Volume 11.4 FL (9.5-12.2); NRBC Per 100 WBC 0 X 10*3/uL (0.00-0.01); Platelet Count 308 X 10*3/uL (140-440); RBC 4.38 X 10*6/uL (4.40-5.60); RDW 12.3 % (11.5-14.5); WBC 8.34 X 10*3/uL (4.50-10.00)
[2023-05-14 19:09] LABS: ALT 17 U/L (10-49); AST 19 U/L (14-35); Albumin 4.6 g/dL (3.8-4.9); Albumin/Globulin Ratio 1.77 Ratio (1.60-3.17); Alkaline Phosphatase 91 U/L (41-126); BUN/Creat Ratio 13.57 Ratio (12.00-20.00); Blood Urea Nitrogen 9.5 mg/dL (9.0-27.0); Calcium 10.4 mg/dL (8.7-10.3); Carbon Dioxide 26.7 mmol/L (21.6-31.8); Chloride 102 mmol/L (96-109); Globulin 2.6 g/dL (1.6-3.3); Glucose 94 mg/dL (70-110); Iron 92 UG/DL (65-175); Potassium 4.5 mmol/L (3.5-5.5); Sodium 142 mmol/L (135-145); Total Bilirubin 0.7 mg/dL (0.3-1.2); Total Protein 7.2 g/dL (6.2-8.2)
== END ==
LOC: BARWHC3 13:01
PROVIDERS: ATTEND Surgery
DX: E66.01 Morbid (severe) obesity due to excess calories (principal); K90.89 Other intestinal malabsorption; E55.9 Vitamin D deficiency, unspecified; Z71.3 Dietary counseling and surveillance; Z68.30 Body mass index [BMI] 30.0-30.9, adult; Z79.82 Long term (current) use of aspirin
CPT/HCPCS: 36415; 80053; 82306; 82607; 82746; 83540; 84425; 85027; 97802; 99211

== ENCOUNTER → 2023-07-23 | Outpatient (CLI) | payer BC ==
[2023-07-23 16:37] VITALS: BP 124/76; PULSE 61; RESP 16; TEMP 98.6; BMI 28.8
--- NOTE | 2023-07-23 17:17 | P.BASOAP ---
Subjective Progress Note Date: 07/23/23 Principal diagnosis: Morbid obesity Patient returns for recheck. Doing well since last visit. He has lost 10 pounds. He is approaching his goal weight. No GERD symptoms. No antiacid use. Objective - Vital Signs Vital signs: Vital Signs Temp 98.6 F 07/23/23 16:18 Pulse 61 07/23/23 16:18 Resp 16 07/23/23 16:18 BP 124/76 07/23/23 16:18 Pulse Ox FiO2 Intake & Output 07/22/23 07/23/23 07/23/23 18:59 06:59 18:59 Weight 87.09 kg - Exam Abdomen: Soft, nontender, nondistended - Constitutional General appearance: Present: average body habitus Assessment/Plan (1) Morbid obesity with BMI of 40.0-44.9, adult Narrative/Plan: Patient doing well after previous sleeve gastrectomy. Continue dietary and exercise regimen. Monitor weight loss. Recheck in October. Check 1 year labs at that time. Plan: Date: 07/23/23 Initial Weight: 133.356 kg Initial BMI: 44.0 Current Weight: 87.09 kg Current BMI: 28.8 Type of Surgery: Vertical Sleeve Gastrectomy Total Volume in Band: Previous Volume: Volume Removed: Volume Added: Band Size:
== END ==
LOC: BARWHC3 15:51
PROVIDERS: ATTEND Surgery
DX: E66.01 Morbid (severe) obesity due to excess calories (principal); Z68.41 Body mass index [BMI] 40.0-44.9, adult; Z98.84 Bariatric surgery status; Z71.3 Dietary counseling and surveillance
CPT/HCPCS: 99211

== ENCOUNTER → 2023-11-05 | Outpatient (CLI) | payer BC ==
[2023-11-05 15:55] VITALS: BP 124/77; PULSE 62; RESP 16; TEMP 99; BMI 27.2
--- NOTE | 2023-11-05 16:25 | P.BASOAP ---
Subjective Progress Note Date: 11/05/23 Principal diagnosis: Morbid obesity 38-year-old male known to our service. Returns after last visit in June. Doing well. Stopped taking his antiacids. Excellent weight loss. No GERD. No nausea or vomiting. Objective - Vital Signs Vital signs: Vital Signs Temp 99 F 11/05/23 15:45 Pulse 62 11/05/23 15:45 Resp 16 11/05/23 15:45 BP 124/77 11/05/23 15:45 Pulse Ox FiO2 Intake & Output 11/04/23 11/05/23 11/05/23 18:59 06:59 18:59 Weight 82.554 kg - Exam Abdomen: Soft, nontender, nondistended Assessment/Plan (1) Morbid obesity with BMI of 40.0-44.9, adult Narrative/Plan: Patient doing well after prior sleeve gastrectomy. Will check annual lab work. Continue dietary and exercise regimen. Follow-up 6 months. Plan: Date: 11/05/23 Initial Weight: 133.356 kg Initial BMI: 44.0 Current Weight: 82.554 kg Current BMI: 27.2 Type of Surgery: Total Volume in Band: Previous Volume: Volume Removed: Volume Added: Band Size:
[2023-11-06 02:41] LABS: HCT 41.1 % (39.6-50.0); HGB 13.8 g/dL (13.0-17.0); MCHC 33.6 g/dL (32.0-37.0); MCV 98.3 FL (80.0-97.0); Mean Platelet Volume 10.9 FL (9.5-12.2); NRBC Per 100 WBC 0 X 10*3/uL (0.00-0.01); Platelet Count 305 X 10*3/uL (140-440); RBC 4.18 X 10*6/uL (4.40-5.60); RDW 12.6 % (11.5-14.5); WBC 8.33 X 10*3/uL (4.50-10.00)
[2023-11-06 03:45] LABS: ALT 22 U/L (10-49); AST 17 U/L (14-35); Albumin 4.7 g/dL (3.8-4.9); Albumin/Globulin Ratio 2.04 Ratio (1.60-3.17); Alkaline Phosphatase 86 U/L (41-126); BUN/Creat Ratio 17.88 Ratio (12.00-20.00); Blood Urea Nitrogen 14.3 mg/dL (9.0-27.0); Carbon Dioxide 27.7 mmol/L (21.6-31.8); Chloride 104 mmol/L (96-109); Globulin 2.3 g/dL (1.6-3.3); Glucose 98 mg/dL (70-110); Iron 74 UG/DL (65-175); Potassium 4.6 mmol/L (3.5-5.5); Sodium 142 mmol/L (135-145); Total Bilirubin 0.5 mg/dL (0.3-1.2)
== END ==
LOC: BARWHC3 15:33
PROVIDERS: ATTEND Surgery
DX: E66.01 Morbid (severe) obesity due to excess calories (principal); K90.89 Other intestinal malabsorption; E55.9 Vitamin D deficiency, unspecified; Z68.41 Body mass index [BMI] 40.0-44.9, adult; Z90.3 Acquired absence of stomach [part of]; Z71.3 Dietary counseling and surveillance; Z98.84 Bariatric surgery status
CPT/HCPCS: 80053; 82306; 82607; 82746; 83540; 84425; 85027; 99211

== ENCOUNTER → 2024-10-06 | Outpatient (CLI) | payer BC ==
[2024-10-06 15:06] VITALS: BP 132/78; PULSE 61; RESP 16; TEMP 98.6; BMI 28.0
--- NOTE | 2024-10-06 15:48 | P.BASOAP ---
Subjective Progress Note Date: 10/06/24 Principal diagnosis: Morbid obesity Patient here for recheck. Last seen 1 year ago. Doing well since last visit. He is now 2 years post sleeve gastrectomy. Weight has been stable. Says he loses and gains about 5 to 6 pounds every few weeks. Up 5 pounds from his last visit. No heartburn symptoms. No antiacids. Objective - Vital Signs Vital signs: Vital Signs Temp 98.6 F 10/06/24 15:03 Pulse 61 10/06/24 15:03 Resp 16 10/06/24 15:03 BP 132/78 10/06/24 15:03 Pulse Ox FiO2 Intake & Output 10/05/24 10/06/24 10/06/24 18:59 06:59 18:59 Weight 84.822 kg - Exam Abdomen: Soft, nontender, nondistended Assessment/Plan (1) Morbid obesity with BMI of 40.0-44.9, adult Narrative/Plan: 39-year-old male doing well after previous sleeve gastrectomy 2 years ago. Check annual lab work. Continue dietary and exercise regimen. Recheck 1 year. Plan: Date: 10/06/24 Initial Weight: 133.356 kg Initial BMI: 44.0 Current Weight: 84.822 kg Current BMI: 28.0 Type of Surgery: Vertical Sleeve Gastrectomy Total Volume in Band: Previous Volume: Volume Removed: Volume Added: Band Size:
== END ==
LOC: BARWHC3 14:55
PROVIDERS: ATTEND Surgery
DX: E66.01 Morbid (severe) obesity due to excess calories (principal); Z68.28 Body mass index [BMI] 28.0-28.9, adult
CPT/HCPCS: 99211